=== PATIENT | male | born 1945 | race Caucasian/White ===

== ENCOUNTER → 2016-04-17 | Outpatient (CLI) | payer OTHER ==
--- NOTE | 2016-04-17 15:07 | MR ---
MRI Upper Extremity, Right Shoulder Comparison: Outside radiographs April 11, 2016 History: Right shoulder pain. History of right humeral neck open reduction, internal fixation in 2015. Evaluate for rotator cuff tear or biceps tendinitis. ICD-10 code: M25.511. Technique: MRI is performed of the right shoulder using a 3 [employer] MRI system. Oblique coronal, obliqu e sagittal, and axial imaging was obtained with imaging sequences tailored to diminish metal suscepti bility artifact, including [place] images. Findings: Metal susceptibility artifact is seen from the patient's open reduction, internal fixation of proximal humeral neck fracture. There is no evidence for bone marrow edema adjacent to the hardwar e or adjacent abnormal fluid collection. No evidence for avascular necrosis of the humeral head. Ther e is abnormal signal intensity and attenuation in the distal posterior fibers of the supraspinatus te ndon. There is mild abnormal signal intensity in the distal infraspinatus tendon with mild attenuatio n in the distal anterior fibers. There is mild abnormal signal intensity and attenuation in the dista l subscapularis tendon. Long head biceps tendon is not well seen in the bicipital groove, and there i s limited evaluation of the tendon intra-articular with the artifact from the patient's hardware. The re is some truncation and fraying in the superior labrum. No evidence for displaced labral tear. No e vidence for glenohumeral joint effusion. Mild degenerative change is seen in the acromioclavicular scott int. Mild anterior curve to the acromion. Mild subacromial fluid collection. Impression: 1. Postsurgical changes of open reduction, internal fixation of proximal humeral fracture without yris dence for hardware complication. 2. Tendinopathy and partial tear distal supraspinatus tendon of the distal posterior fibers and the d istal anterior fibers of the infraspinatus tendon. Mild subacromial bursitis. 3. Mild tendinopathy and partial tear distal subscapularis tendon. 4. Limited evaluation of the long head biceps tendon with the artifact from the hardware. There is so me truncation and fraying of the superior labrum. 5. Mild degenerative change acromioclavicular joint.
== END ==
LOC: FIMAGING 12:52
PROVIDERS: ATTEND Orthopaedic Surgery Hand Surgery
DX: M75.51 Bursitis of right shoulder (principal); M19.011 Primary osteoarthritis, right shoulder